=== PATIENT | male | born 1930 | race Caucasian/White ===

== ENCOUNTER → 2020-08-12 | Outpatient (CLI) | payer MEDICARE ==
[~2020-08-12] MED LIST: GADOTERATE 7.5 MMOL/15ML SYR ONE
== END | disposition home or self-care (01) ==
LOC: RAD 09:39
PROVIDERS: ATTEND Orthopaedic Surgery
DX: M25.851 Other specified joint disorders, right hip (principal)
CPT/HCPCS: 72197; A9575

== ENCOUNTER → 2020-08-15 | Outpatient (CLI) | payer MEDICARE | END | disposition home or self-care (01) | LOC: ROC 07:17 | PROVIDERS: ATTEND Radiology Radiation Oncology | DX: C79.51 Secondary malignant neoplasm of bone (principal); R53.82 Chronic fatigue, unspecified | CPT/HCPCS: 99214; G0463 ==

== ENCOUNTER 2020-08-28 05:46 | Day surgery (SDC) | payer MEDICARE ==
[~2020-08-28] VITALS: Ht 177.8 cm; Wt 64.4 kg
[2020-08-28] MEDS ORDERED: SODIUM CHLORIDE 0.9% 1,000 ML IV SCH (07:00)
[2020-08-28 07:02] VITALS: BP 119/69
[2020-08-28] MEDS ORDERED: LIDOCAINE 1%, 10ML ONE (09:21)
[2020-08-28] MEDS ORDERED: MIDAZOLAM 1 MG/ML, 5ML ONE (09:41)
[2020-08-28] MEDS ORDERED: NALOXONE 1 MG/ML, 2ML ONE (09:42)
[2020-08-28] MEDS ORDERED: FENTANYL PF 100 MCG/2ML ONE (09:42)
[2020-08-28] MEDS ORDERED: FLUMAZENIL 0.1 MG/1 ML, 5ML ONE (09:42)
== END 2020-08-28 11:15 | disposition home or self-care (01) ==
LOC: OUT 05:46
PROVIDERS: ATTEND Orthopaedic Surgery
DX: C79.51 Secondary malignant neoplasm of bone (principal); C90.00 Multiple myeloma not having achieved remission; Z79.899 Other long term (current) drug therapy
CPT/HCPCS: 20220; 77012; 88307; 88311; 88341; 88342; 99156; 99157; J2250; J3010; J7030; 38222; J2310

== ENCOUNTER → 2020-09-10 | Outpatient (CLI) | payer MEDICARE | END | disposition home or self-care (01) | LOC: PETCFH 07:14 | PROVIDERS: ATTEND Pathology Hematology | DX: C79.51 Secondary malignant neoplasm of bone (principal); K80.20 Calculus of gallbladder without cholecystitis without obstruction | CPT/HCPCS: 78816; A9552 ==

== ENCOUNTER 2020-10-03 19:25 | Emergency (ER) | payer MEDICARE ==
[~2020-10-03] VITALS: Ht 180.3 cm; Wt 60.0 kg
[2020-10-03 19:40] VITALS: BP 139/81
--- NOTE | 2020-10-03 20:00 | NUR ---
assessment made. bladder scan resulted 336 ml.
[2020-10-03 20:08] LABS: MEAN CORPUSCULAR HEMOGLOBIN 29.5 pg (27.5-34.5); MEAN CORPUSCULAR HGB CONC 32.9 g/dL (33.2-36.2); MEAN PLATELET VOLUME 7.3 fL (7.4-10.4); PLATELET COUNT 218 x10^3/uL (130-400); RED BLOOD COUNT 4.22 x10^6/uL (4.38-5.82); RED CELL DISTRIBUTION WIDTH 15.1 % (9.4-14.8)
[2020-10-03 20:15] LABS: ALANINE AMINOTRANSFERASE 83 U/L (12-78); ALBUMIN 2.5 g/dL (3.4-5.0); ANION GAP 5 mmol/L (5-15); CALCIUM 9.7 mg/dL (8.5-10.1); CHLORIDE 104 mmol/L (98-107)
[2020-10-03 20:17] LABS: ALKALINE PHOSPHATASE 196 U/L (45-117); BILIRUBIN,TOTAL 0.4 mg/dL (0.2-1.0)
[2020-10-03] MEDS ORDERED: LIDOCAINE 2%,20 ML JEL.PF.APP MM ONE (20:18)
--- NOTE | 2020-10-03 20:34 | NUR ---
attempted to place ac catheter. unsuccessful.
[2020-10-03 20:44] LABS: BAND#(MANUAL) 0.12 x10^3/uL; BANDS%(MANUAL) 1 % (0-7); LYMPH#(MANUAL) 1.08 x10^3/uL (1-3.4); LYMPHS% (MANUAL) 9 % (22-44); MONOS% (MANUAL) 5 % (2-9); SEGS% (MANUAL) 85 % (42-75)
[2020-10-03 20:45] LABS: <PLATELET ESTIMATE> ADEQUATE; <PLT MORPHOLOGY> NORMAL PLT MORPH
[2020-10-03 20:46] LABS: STOMATOCYTES 1+
[2020-10-03] MEDS ORDERED: ONDANSETRON ODT 4 MG ONE (20:47)
[2020-10-03] MEDS ORDERED: HYDROcodone/APAP 5/325 TABLET ONE (20:48)
[2020-10-03] MEDS ORDERED: ONDANSETRON ODT 4 MG PO ONE (21:00)
[2020-10-03] MEDS ORDERED: HYDROcodone/APAP 5/325 TABLET PO ONE (21:00)
--- NOTE | 2020-10-03 21:12 | NUR ---
bladder scan recheck resulted 494 ml. aware.
[2020-10-03] MEDS ORDERED: SODIUM CHLORIDE FLUSH 10ML SYR IVF ONE (22:00)
[2020-10-03] MEDS ORDERED: LIDOCAINE 1%, 20ML ONE (22:06)
[2020-10-03] MEDS ORDERED: MIDAZOLAM 1 MG/ML, 5ML ONE (22:06)
[2020-10-03] MEDS ORDERED: FENTANYL PF 100 MCG/2ML ONE (22:06)
--- NOTE | 2020-10-03 22:10 | NUR ---
patient to IR for Suprapubic catheter placement.
--- NOTE | 2020-10-03 22:14 | NUR ---
REPORT FROM [facility]ES[facility] TRANSFER OF CARE AT THIS TIME. PT IN IR FOR SUPRAPUBIC CATH PLACEMENT
--- NOTE | 2020-10-03 23:00 | NUR ---
PT BACK FROM IR TOLERATED PROCEEDURE WELL GIVEN 2 OF VERSED AND 50 OF FETANYL.
[2020-10-03] MEDS ORDERED: VISIPAQUE 270 MG/ML, 50ML BOTTLE ONE (23:14)
--- NOTE | 2020-10-03 23:25 | NUR ---
urine sent to lab to alert and oriented at this time
[2020-10-03 23:45] LABS: MICROSCOPIC INDICATED
--- NOTE | 2020-10-04 02:01 | NUR ---
PT AND FAMILY EDUCATED ON CATH CARE AND BAG CHANGES. PT SWITCHED TO LEG BAG AT THIS TIME.
== END 2020-10-04 02:49 | disposition home or self-care (01) ==
LOC: ED 19:36
DX: R33.8 Other retention of urine (principal); N32.0 Bladder-neck obstruction; Z85.118 Personal history of other malignant neoplasm of bronchus and lung; Z85.49 Personal history of malignant neoplasm of other male genital organs; Z85.830 Personal history of malignant neoplasm of bone
CPT/HCPCS: 36415; 51703; 75989; 80053; 81001; 85025; 87086; 99156; 99157; 99285; C1725; C1769; J2250; J3010; J3490; Q0162; Q9966